=== PATIENT | male | born 1955 | race Two or more races ===

== ENCOUNTER 2024-11-10 08:52 | Outpatient (CLI) | payer OTHER ==
[2024-11-10 10:42] LABS: BASO % 0.6 % (0.1-1.2); EOS # 0.26 (0.04-0.54); EOS % 2.9 % (0.7-7.0); HEMATOCRIT 42.8 % (40.1-51.0); HEMOGLOBIN 13.8 g/dL (13.7-17.5); LYMPH # 2.51 (1.18-3.74); MEAN CORPUSCULAR HEMOGLOBIN 27.7 pg (25.6-32.2); MONO # 0.54 (0.24-0.82); NEUT % 62.3 % (34.0-71.1); PLATELET COUNT 233 K/uL (163-369); RED BLOOD COUNT 4.98 M/uL (4.63-6.08); RED CELL DISTRIBUTION WIDTH 14.7 % (11.6-14.4)
[2024-11-10 11:01] LABS: PH,URINE 5.5 (5.0-8.0); URINE APPEARANCE Clear; URINE BILIRRUBIN Negative (NEGATIVE); URINE BLOOD Negative; URINE COLOR Yellow; URINE GLUCOSE Negative (NEGATIVE); URINE KETONE Negative (NEGATIVE); URINE LEUKOCYTE Negative; URINE NITRATE Negative; URINE PROTEIN Negative (NEGATIVE); URINE UROBILINOGEN 0.2 E.U./dl
[2024-11-10 11:02] LABS: URINE RBC 10.9 uL (0.0-20.8); URINE WBC 2.1 uL (0.0-23.2)
[2024-11-10 11:49] LABS: URINE BACTERIA 2.4 uL (0.0-1933); URINE EPITHELIAL CELLS 0.9 uL (0.0-38.8)
[2024-11-10 13:30] LABS: ALBUMIN 3.6 gm/dL (3.4-5.0); BILIRUBIN TOTAL 0.42 mg/dL (0.3-1.2); CHOL HDL RATIO 3.3 (0-5.0); GFR 74.53; GLOBULINA 3.4 G/DL (2.4-3.5); POTASSIUM 4.95 mEq/L (3.5-5.1); T4 FREE 0.79 NG/ML (0.76-1.46); TSH 1.85 uIU/mL (0.358-3.74)
== END 2024-11-10 09:02 | disposition home or self-care (01) ==
LOC: LAB 08:52
DX: E78.2 Mixed hyperlipidemia (principal); E55.9 Vitamin D deficiency, unspecified; R73.03 Prediabetes

== ENCOUNTER 2024-11-12 09:36 | Outpatient (CLI) | payer OTHER | END 2024-11-12 09:37 | disposition home or self-care (01) | LOC: NUCLEAR 09:36 | PROVIDERS: ATTEND Internal Medicine | DX: I73.9 Peripheral vascular disease, unspecified (principal) ==